=== PATIENT | female | born 1995 | race Hispanic/Latino ===

== ENCOUNTER 2021-09-16 22:07 | Emergency (ER) | payer OTHER ==
[~2021-09-16] VITALS: Ht 157.5 cm; Wt 64.9 kg
[2021-09-16] MEDS ORDERED: MORPHINE 2 MG SYG IVP ONE (23:00)
[2021-09-16] MEDS ORDERED: LACTATED RINGERS 1000ML 1,000 ML IV ONE (23:00)
[2021-09-16] MEDS ORDERED: ONDANSETRON 4MG INJ IVP ONE (23:00)
[2021-09-16] MEDS ORDERED: KETOROLAC 15MG/ML VIAL (15MG/ML) IV ONE (23:00)
[2021-09-16 23:09] LABS: BASOPHILS % (AUTO) 0.4 % (0.0-5.0); EOSINOPHILS % (AUTO) 1.3 % (0.0-8.0); HEMATOCRIT 36.6 % (36-48); LYMPHOCYTES % (AUTO) 33.1 % (21.0-51.0); MEAN CORPUSCULAR HEMOGLOBIN 28.9 pg (27.0-33.0); MEAN CORPUSCULAR HGB CONC 33.3 g/dL (32.0-36.0); MEAN CORPUSCULAR VOLUME 86.7 fL (79-99); MONOCYTES % (AUTO) 7.7 % (3.0-13.0); NEUTROPHILS % (AUTO) 57.3 % (40.0-77.0); PLATELET COUNT (AUTO) 169 K/uL (130-400); RED BLOOD CELL COUNT(AUTO) 4.22 MIL/uL (4.00-5.50); RED CELL DISTRIBUTION WIDTH 12.6 % (11.0-15.5); WHITE BLOOD COUNT (AUTO) 5.6 K/uL (4.8-10.8)
[2021-09-16 23:18] LABS: CREATININE 0.7 mg/dL (0.5-1.5); POTASSIUM 3.6 mmol/L (3.5-5.1)
[2021-09-16 23:23] LABS: ALBUMIN 4.3 g/dL (3.5-5.0); BILIRUBIN,TOTAL 0.4 mg/dL (0.2-1.0); CRP QUANTITATIVE 6.9 mg/L (0.00-9.0); TOTAL PROTEIN, SERUM 8.2 g/dL (6.0-8.3)
[2021-09-17 00:29] VITALS: BP 127/79
[2021-09-17] MEDS ORDERED: LIDOP TP (02:50)
[2021-09-17] MEDS ORDERED: MELO7.5T12 PO (02:50)
[2021-09-17] MEDS ORDERED: ORPH-43 PO (02:50)
== END 2021-09-17 03:18 | disposition home or self-care (01) ==
LOC: EDH 22:07
DX: R51.9 Headache, unspecified (principal); M62.838 Other muscle spasm; M54.2 Cervicalgia; J45.909 Unspecified asthma, uncomplicated; Z88.0 Allergy status to penicillin; Z90.49 Acquired absence of other specified parts of digestive tract; Z79.1 Long term (current) use of non-steroidal anti-inflammatories (NSAID)
CPT/HCPCS: 36415; 70450; 80053; 84703; 85025; 86140; 96361; 96374; 96375; 99284; J1885; J2405; J7120